=== PATIENT | female | born 1990 | race African-American/Black ===

== ENCOUNTER 2017-01-27 03:28 | Emergency (ER) | payer OTHER ==
[2017-01-27 06:32] LABS: Acetaminophen Less than 6.0 mcg/mL (10.0-30.0); Salicylate Less than 8.0 mg/dL (15.0-30.0)
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
== END 2017-01-27 06:55 | disposition home or self-care (01) ==
LOC: ERS 03:28
DX: F10.129 Alcohol abuse with intoxication, unspecified (principal); Y90.4 Blood alcohol level of 80-99 mg/100 ml
CPT/HCPCS: 70450; 72125; 80307; 96360

== ENCOUNTER 2018-09-03 08:25 | Emergency (ER) | payer OTHER, SELFPAY ==
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
== END 2018-09-03 10:05 | disposition home or self-care (01) ==
LOC: ERS 08:25
DX: S20.211A Contusion of right front wall of thorax, initial encounter (principal); W17.89XA Other fall from one level to another, initial encounter
CPT/HCPCS: 71046